=== PATIENT | male | born 1980 | race Caucasian/White ===

== ENCOUNTER 2024-04-10 16:00 | Emergency (ER) | payer MEDICAID ==
[~2024-04-10] VITALS: Ht 182.9 cm; Wt 100.0 kg
[2024-04-10 16:04] VITALS: BP 123/51; PULSE 86; RESP 18; TEMP 98; O2SAT 100
== END 2024-04-10 18:22 | disposition home or self-care (01) ==
LOC: ER 16:00 → EDBD 16:00 → ER 18:22
DX: S09.90XA Unspecified injury of head, initial encounter (principal); R07.9 Chest pain, unspecified; W22.09XA Striking against other stationary object, initial encounter; Y93.89 Activity, other specified; Y92.89 Other specified places as the place of occurrence of the external cause; Y99.8 Other external cause status
CPT/HCPCS: 93005; 99284